=== PATIENT | male | born 1980 | race Caucasian/White ===

== ENCOUNTER 2018-08-25 00:20 | Emergency (ER) | payer MEDICAID ==
[~2018-08-25] VITALS: Ht 182.9 cm; Wt 115.0 kg
[2018-08-25 00:22] VITALS: BP 146/86
[2018-08-25] MEDS ORDERED: TRAZ-137 PO (00:27)
[2018-08-25] MEDS ORDERED: METH-356 PO ×2 (00:27)
[2018-08-25] MEDS ORDERED: HYDROcodone/APAP 5/325 TABLET ONE (00:49)
[2018-08-25] MEDS ORDERED: HYDROcodone/APAP 5/325 TABLET PO ONE (01:00)
== END 2018-08-25 01:08 | disposition home or self-care (01) ==
LOC: ED 01:02
DX: G89.11 Acute pain due to trauma (principal); M54.9 Dorsalgia, unspecified; W01.0XXA Fall on same level from slipping, tripping and stumbling without subsequent striking against object, initial encounter; Y93.89 Activity, other specified; Y92.89 Other specified places as the place of occurrence of the external cause; Y99.8 Other external cause status
CPT/HCPCS: 99283